=== PATIENT | male | born 1970 | race Caucasian/White ===

== ENCOUNTER 2017-06-27 01:42 | Emergency (ER) | payer OTHER ==
[2017-06-27] MEDS ORDERED: Ondansetron ODT 4 MG TAB ONE (01:44)
[2017-06-27] MEDS ORDERED: Ondansetron HCl/PF 4 MG/2 ML Vial ONE (05:34)
[2017-06-27 05:45] LABS: Hematocrit 50.8 % (42.0-52.0); Mean Platelet Volume 6.5 fL (7.4-10.4); Red Blood Cell (RBC) Count 5.64 mill/uL (4.70-6.10); White Blood Cell (WBC) Count 16.5 thou/uL (4.8-10.8)
[2017-06-27 05:48] LABS: ALT (SGPT) 26 U/L (8-55); AST (SGOT) 21 U/L (5-34); Alkaline Phosphatase 57 U/L (40-150); Anion Gap 17 mmol/L (10-20); BUN (Urea Nitrogen) 21 mg/dL (8.9-20.6); Bilirubin, Total 0.8 mg/dL (0.2-1.2); Calc. Creatinine Clearance 0 mL/min (70-130); Calcium 10.1 mg/dL (7.8-10.44); Carbon Dioxide 22 mmol/L (22-29); Chloride 104 mmol/L (98-107); Estimated GFR-MDRD 60; Globulin 3.5 g/dL (2.4-3.5); Lipase 17 U/L (8-78); Protein, Total 8.2 g/dL (6.0-8.3)
[2017-06-27 06:45] LABS: Band 19 % (5-11); Neutrophil 78 % (42-75)
--- NOTE | 2017-06-27 09:11 | CT ---
PRELIMINARY REPORT/[facility]/EMERGENCY AFTER HOURS PROCEDURE: EXAM: CT Abdomen and Pelvis With Intravenous Contrast EXAM DATE/TIME: Exam ordered 06/27/2017 5:29 AM CLINICAL HISTORY: 47 years old, male; Pain; Abdominal pain; Generalized; Patient HX: Abd pain TECHNIQUE: Axial computed tomography images of the abdomen and pelvis with intravenous contrast. Coronal reformatted images were created and reviewed. CONTRAST: 100 mL of ISOVUE administered intravenously. COMPARISON: No relevant prior studies available. FINDINGS: Lower thorax: There is subpleural atelectasis of the dependent portions of the lungs. ABDOMEN: Liver: There are no focal liver lesions present. Gallbladder and bile ducts: The gallbladder is normal. There is no evidence of biliary ductal dilatio n. No calcified stones. Pancreas: The pancreas is normal. No ductal dilation. Spleen: The spleen demonstrates punctate calcifications, consistent with remote granulomatous organis m exposure. Adrenals: The adrenal glands are normal. Kidneys and ureters: The kidneys are normal. No hydronephrosis. Stomach and bowel: The stomach is normal. The duodenum is unremarkable. There is no evidence of intes tinal perforation or obstruction. No mucosal thickening. Appendix: A normal appendix is identified. PELVIS: Bladder: The bladder is normal. Reproductive: The prostate gland and seminal vesicles are normal. ABDOMEN and PELVIS: Intraperitoneal space: Normal. No free air. No significant fluid collection. Bones/joints: No acute fracture. No dislocation. Soft tissues: Normal. Vasculature: Normal. No abdominal aortic aneurysm. Lymph nodes: Normal. No enlarged lymph nodes. IMPRESSION: No acute abdominal pelvic pathology. Thank you for allowing us to participate in the care of your patient. Dictated and Authenticated by: Benedicto Torres MD 06/27/2017 5:59 AM Central Time ([place] & [place]) FINAL REPORT CONTRAST ENHANCED CT IMAGES OF ABDOMEN AND PELVIS: Date: 06/27/17 HISTORY: Vomiting and diarrhea. TECHNIQUE: Contrast enhanced CT images of abdomen and pelvis obtained. IV contrast was given. Oral contrast, unf ortunately, was not given. FINDINGS: This is the final report. Preliminary exam was performed by [facility]. The lung bases are unremarkable. No evidence of free intraperitoneal air seen. No dilated loops of sona wel seen. The solid organs are unremarkable. The kidneys and adrenal glands are unremarkable. No evid ence of periaortic lymphadenopathy seen. IMPRESSION: Unremarkable contrast enhanced CT images of abdomen and pelvis. I agree with the preliminary report given by Felipe. POS: MANJIT
[2017-06-27] MEDS ORDERED: ISOVUE-370 76%-LOCM 1 ML ONE (13:53)
== END 2017-06-27 07:12 | disposition home or self-care (01) ==
LOC: ERS 01:42
DX: E86.0 Dehydration (principal); R19.7 Diarrhea, unspecified; R11.2 Nausea with vomiting, unspecified; E78.5 Hyperlipidemia, unspecified; Z87.891 Personal history of nicotine dependence
CPT/HCPCS: 36415; 74177; 80053; 82274; 83690; 85025; 96361; 96374; J2405; Q0162

== ENCOUNTER 2020-10-08 16:07 | Outpatient (CLI) | payer OTHER | END 2020-10-08 16:08 | disposition home or self-care (01) | LOC: BICRAD 16:07 | PROVIDERS: ATTEND Physician Assistant | DX: M25.552 Pain in left hip (principal); M79.652 Pain in left thigh; M54.42 Lumbago with sciatica, left side; M16.12 Unilateral primary osteoarthritis, left hip; M25.752 Osteophyte, left hip | CPT/HCPCS: 72100 ==